=== PATIENT | female | born 1975 | race Caucasian/White ===

== ENCOUNTER 2017-01-25 16:40 | Observation (INO) | payer OTHER ==
[~2017-01-25] VITALS: Ht 167.6 cm; Wt 95.0 kg
[~2017-01-25 16:40] MED LIST: METH750T2 PO; NAPR-576 PO
[2017-01-25] MEDS ORDERED: SODIUM CHLORIDE 0.9% FLUSH 10 ML FLUSH IVF PRN (17:00)
[2017-01-25] MEDS ORDERED: ASPIRIN 81 MG CHEW TAB PO ONE (17:00)
[2017-01-25] MEDS ORDERED: MORPHINE SULFATE 4 MG/ML INJ IV PUSH ONE (17:00)
[2017-01-25] MEDS: NITROGLYCERIN 0.4 MG SL 25 TABS/BTL SL SCH ×3 (17:01→17:11)
[2017-01-25 17:02] VITALS: BP 131/72; PULSE 68; RESP 20; O2SAT 99
--- NOTE | 2017-01-25 17:03 | PD ---
HPI Chief Complaint: Chest Pain Time Seen by Provider: 16:45 Travel History International Travel<30 days: No Contact w/Intl Traveler<30days: No Traveled to known affect area: No History of Present Illness HPI This is a 41-year-old female who presents for evaluation of chest pain. Symptoms started just prior to arrival and the patient was eating at [employer]. Pain is substernal chest pressure that radiates into the right arm/ scapula. Symptoms have been constant. No obvious aggravating or relieving factors. Denies shortness of breath, nausea or vomiting, dizziness, diaphoresis , abdominal pain, recent illness, recent travel, recent surgery. No personal history of cardiac disease. She does note that her maternal grandmother had an NH in her 40s. No other complaints. PFSH Past Medical History ?: Not Past Surgical History Hysterectomy: Yes Social History Alcohol Use: No Tobacco Use: No Allergies-Medications (Allergen,Severity, Reaction): Coded Allergies: Phenergan (Verified Allergy, Severe, hallucination, 01/25/17) HALLUCINATIONS IF GIVEN IV Reported Meds & Prescriptions Reported Meds & Active Scripts Active No Active Prescriptions or Reported Medications Review of Systems Except as stated in HPI: all other systems reviewed are Neg Physical Exam Narrative GENERAL: This is a well-developed well-nourished female in no acute distress. SKIN: Warm and dry. HEAD: Atraumatic. Normocephalic. EYES: Pupils equal and round. No scleral icterus. No injection or drainage. ENT: No nasal bleeding or discharge. Mucous membranes pink and moist. NECK: Trachea midline. No JVD. CARDIOVASCULAR: Regular rate and rhythm. No murmur appreciated. RESPIRATORY: No accessory muscle use. Clear to auscultation. Breath sounds equal bilaterally. GASTROINTESTINAL: Abdomen soft, non-tender, nondistended. Hepatic and splenic margins not palpable. MUSCULOSKELETAL: No obvious deformities. No clubbing. No cyanosis. No edema. NEUROLOGICAL: Awake and alert. No obvious cranial nerve deficits. Motor grossly within normal limits. Normal speech. PSYCHIATRIC: Appropriate mood and affect; insight and judgment normal. Data Data Last Documented VS Vital Signs Date Time Temp Pulse Resp B/P Pulse Ox O2 Delivery O2 Flow Rate FiO2 01/25/17 17:16 20 01/25/17 17:02 100 Nasal Cannula 2 01/25/17 17:02 68 131/72 Orders Electrocardiogram (01/25/17 ) Basic Metabolic Panel (Bmp) (01/25/17 16:49) Ckmb (Isoenzyme) Profile (01/25/17 16:49) Complete Blood Count With Diff (01/25/17 16:49) Magnesium (Mg) (01/25/17 16:49) Prothrombin Time / Inr (Pt) (01/25/17 16:49) Act Partial Throm Time (Ptt) (01/25/17 16:49) Troponin I (01/25/17 16:49) Chest, Single Ap (01/25/17 16:49) Ecg Monitoring (01/25/17 16:49) Bilateral Bp Monitoring (01/25/17 16:49) Iv Access Insert/Monitor (01/25/17 16:49) Oximetry (01/25/17 16:49) Oxygen Administration (01/25/17 16:49) Aspirin Chew (Aspirin Chew) (01/25/17 17:00) Sodium Chloride 0.9% Flush (Ns Flush) (01/25/17 17:00) Nitroglycerin Sl (Nitrostat Sl) (01/25/17 17:00) Morphine Inj (Morphine Inj) (01/25/17 17:00) Potassium Chloride (Kcl) (01/25/17 18:15) Labs Laboratory Tests Test 01/25/17 17:00 White Blood Count 11.5 TH/MM3 Red Blood Count 4.79 MIL/MM3 Hemoglobin 14.4 GM/DL Hematocrit 43.1 % Mean Corpuscular Volume 90.0 FL Mean Corpuscular Hemoglobin 30.1 PG Mean Corpuscular Hemoglobin 33.4 % Concent Red Cell Distribution Width 13.2 % Platelet Count 316 TH/MM3 Mean Platelet Volume 8.6 FL Neutrophils (%) (Auto) 59.4 % Lymphocytes (%) (Auto) 30.8 % Monocytes (%) (Auto) 7.4 % Eosinophils (%) (Auto) 2.0 % Basophils (%) (Auto) 0.4 % Neutrophils # (Auto) 6.9 TH/MM3 Lymphocytes # (Auto) 3.5 TH/MM3 Monocytes # (Auto) 0.8 TH/MM3 Eosinophils # (Auto) 0.2 TH/MM3 Basophils # (Auto) 0.0 TH/MM3 CBC Comment DIFF FINAL Differential Comment Prothrombin Time 10.8 SEC Prothromb Time International 1.0 RATIO Ratio Activated Partial 25.6 SEC Thromboplast Time Sodium Level 140 MEQ/L Potassium Level 3.4 MEQ/L Chloride Level 105 MEQ/L Carbon Dioxide Level 28.9 MEQ/L Anion Gap 6 MEQ/L Blood Urea Nitrogen 12 MG/DL Creatinine 1.06 MG/DL Estimat Glomerular Filtration 57 ML/MIN Rate Random Glucose 70 MG/DL Calcium Level 8.8 MG/DL Magnesium Level 2.5 MG/DL Total Creatine Kinase 66 U/L Troponin I LESS THAN 0.02 NG/ML MDM Medical Decision Making Medical Screen Exam Complete: Yes Emergency Medical Condition: Yes Medical Record Reviewed: Yes Interpretation(s) EKG sinus rhythm CBC WBC 11.5 BMP potassium 3.4, creatinine 1.06 Differential Diagnosis ACS, cholecystitis, aortic dissection, pneumothorax, hemothorax, pericarditis, myocarditis, costochondritis, muscle spasm Narrative Course 41-year-old female who developed chest pain just prior to arrival. The pain is a substernal chest pressure that radiates into the right arm/scapula. No other associated symptoms. A 12-lead EKG was immediately obtained. The patient was placed on ECG monitoring pulse oximetry. She was given a full dose aspirin, sublingual nitroglycerin, morphine. Basic lab work has been sent. The patient's laboratory imaging studies have been reviewed. Potassium slightly low at 3.4, she was given 20 mEq oral potassium chloride. Initial set of cardiac enzymes are negative. The patient's symptoms did improve after the administration of nitroglycerin from an area that of 10 pain to a 2 out of 10 pain and therefore the morphine was not administered. At this point in time the plan will be to admit the patient to the chest pain center for serial cardiac enzymes and rule out purposes. Discussed with the patient is agreeable. Procedures EKG Prior to Arrival: Yes Diagnosis Primary Impression: Chest pain Qualified Code: R07.9 - Chest pain, unspecified type Admitting Information Admitting Physician Requests: Observation Scripts No Active Prescriptions or Reported Meds Terrence Melgoza Jan 25, 2017 17:03
--- NOTE | 2017-01-25 17:18 | RADRPT ---
EXAM DATE/TIME: 01/25/2017 16:53 [facility] COMPARISON: No previous studies available for comparison. INDICATIONS : Chest pain. MEDICAL HISTORY : None. SURGICAL HISTORY : Hysterectomy. Right rotator cuff repair. Rhinoplasty. ENCOUNTER: Initial ACUITY: 1 day PAIN SCORE: 9/10 LOCATION: Bilateral chest FINDINGS: A single view of the chest demonstrates the lungs to be symmetrically aerated without evidence of mas s, infiltrate or effusion. The cardiomediastinal contours are unremarkable. Osseous structures are intact. CONCLUSION: No acute disease. Gerardo Chavez MD on January 25, 2017 at 17:16 Board Certified Radiologist. This report was verified electronically.
[2017-01-25 17:28] LABS: AUTOMATED NEUTROPHIL # 6.9 TH/MM3 (1.8-7.7); BASOPHIL % 0.4 % (0.0-2.0); EOSINOPHIL # 0.2 TH/MM3 (0-0.4); HEMATOCRIT 43.1 % (35.0-46.0); HEMO FLAGS DIFF FINAL; LYMPH % 30.8 % (9.0-44.0); LYMPHOCYTE # 3.5 TH/MM3 (1.0-4.8); MEAN CORPUSCULAR HEMOGLOBIN 30.1 PG (27.0-34.0); MEAN CORPUSCULAR HGB CONC 33.4 % (32.0-36.0); MONO % 7.4 % (0.0-8.0); NEUT % 59.4 % (16.0-70.0); PLATELET COUNT 316 TH/MM3 (150-450); RED BLOOD COUNT 4.79 MIL/MM3 (4.00-5.30); RED CELL DISTRIBUTION WIDTH 13.2 % (11.6-17.2); WHITE BLOOD COUNT 11.5 TH/MM3 (4.0-11.0)
[2017-01-25 17:46] LABS: APTT (PATIENT) 25.6 SEC (24.3-30.1); PROTHROMBIN TIME - PATIENT 10.8 SEC (9.8-11.6)
[2017-01-25 17:51] LABS: ANION GAP 6 MEQ/L (5-15); BICARBONATE 28.9 MEQ/L (21.0-32.0); BLOOD UREA NITROGEN 12 MG/DL (7-18); CHLORIDE 105 MEQ/L (98-107); GLOMERULAR FILTRATION RATE 57 ML/MIN (>89); MAGNESIUM 2.5 MG/DL (1.5-2.5); POTASSIUM 3.4 MEQ/L (3.5-5.1); SODIUM (NA) 140 MEQ/L (136-145)
[2017-01-25 17:58] LABS: CREATINE KINASE 66 U/L (26-192)
[2017-01-25] MEDS ORDERED: POTASSIUM CHLORIDE 20 MEQ CONTROLLED RELEASE TAB PO ONE (18:15)
[2017-01-25] MEDS ORDERED: ONDANSETRON HCL 4 MG/2 ML VIAL IV PRN (18:15)
[2017-01-25] MEDS ORDERED: SODIUM CHLORIDE 0.9% FLUSH 10 ML FLUSH IV FLUSH PRN (18:15)
[2017-01-25] MEDS ORDERED: ACETAMINOPHEN 500 MG CPLT PO PRN (18:15)
[2017-01-25 19:30] VITALS: O2SAT 97
[2017-01-25 20:09] VITALS: BP_SYST 108; BP_SYST 117; BP_DIAS 71; BP_DIAS 78; PULSE 52; PULSE 67; RESP 16; O2SAT 100; O2SAT 98
[2017-01-25 20:59] VITALS: BP 118/68; PULSE 55; RESP 18; TEMP 98.4; O2SAT 100
[2017-01-25 21:32] LABS: CREATINE KINASE 56 U/L (26-192)
--- NOTE | 2017-01-25 21:33 | EKG ---
Date Performed: 01/25/2017 Time Performed: 16:58:27 PTAGE: 41 years EKG: Sinus rhythm NORMAL ECG NO PREVIOUS TRACING DOCTOR: Seferino Ward Interpretating Date/Time 01/25/2017 21:31:39
[2017-01-25 21:39] VITALS: PULSE 54
[2017-01-25] MEDS: SODIUM CHLORIDE 0.9% FLUSH 10 ML FLUSH IV FLUSH SCH (21:45)
[2017-01-25 23:37] VITALS: BP 97/57; PULSE 47; RESP 18; TEMP 98.1; O2SAT 97
[2017-01-25] MEDS ORDERED: ACETAMINOPHEN/HYDROcodone 325 MG/7.5 MG TAB PO SCH (23:45)
[2017-01-25] MEDS ORDERED: ACETAMINOPHEN/HYDROcodone 325 MG/7.5 MG TAB PO PRN (23:45)
[2017-01-25 23:59] LABS: CREATINE KINASE 55 U/L (26-192)
[2017-01-26 00:25] VITALS: PULSE 51
[2017-01-26 04:11] VITALS: BP 112/58; PULSE 42; RESP 18; TEMP 98.4; O2SAT 99
[2017-01-26 04:24] VITALS: PULSE 42
--- NOTE | 2017-01-26 07:02 | EKG ---
Date Performed: 01/25/2017 Time Performed: 20:17:42 PTAGE: 41 years EKG: SINUS BRADYCARDIA BORDERLINE ECG PREVIOUS TRACING : 01/25/2017 16.58 No significant change from previous tracing noted. DOCTOR: Seferino Ward Interpretating Date/Time 01/26/2017 07:01:03
[2017-01-26 07:51] VITALS: BP 115/63; PULSE 54; RESP 15; TEMP 97.5; O2SAT 100
[2017-01-26 08:00] VITALS: PULSE 53
[2017-01-26 08:08] VITALS: O2SAT 99
[2017-01-26] MEDS: SODIUM CHLORIDE 0.9% FLUSH 10 ML FLUSH IV FLUSH SCH (08:58)
[2017-01-26] MEDS ORDERED: SODIUM CHLOR 0.9% 1000 ML INJ 1,000 ML IV SCH (09:00)
--- NOTE | 2017-01-26 10:02 | RADRPT ---
EXAM DATE/TIME: 01/26/2017 09:26 [facility] COMPARISON: No previous studies available for comparison. INDICATIONS : Right upper quandrant pain. MEDICAL HISTORY : Hypercholesterolemia. Syncope. SURGICAL HISTORY : Hysterectomy. Right rotator cuff repair. Rhinoplasty. ENCOUNTER: Initial ACUITY: 1 day PAIN SCORE: 4/10 LOCATION: Right upper quadrant MEASUREMENTS: LIVER: 17.6 cm length COMMON DUCT: 4 mm RIGHT KIDNEY: 8.8 x 4.0 x 5.2 cm FINDINGS: LIVER: Normal echotexture without focal lesion or ductal dilatation. COMMON DUCT: No intraluminal mass or stone visualized. GALLBLADDER: Contains no stones, demonstrates no wall thickening or pericholecystic fluid. PANCREAS: The visualized portions are within normal limits. RIGHT KIDNEY: No evidence of hydronephrosis, stone, or mass. CONCLUSION: Normal examination. Jimi Morris MD on January 26, 2017 at 9:59 Board Certified Radiologist. This report was verified electronically.
[2017-01-26 12:03] LABS: ALKALINE PHOSPHATASE 79 U/L (45-117); TOTAL BILIRUBIN ADULT 0.2 MG/DL (0.2-1.0)
[2017-01-26 12:06] LABS: ALT (GPT) 22 U/L (10-53); INDIRECT BILIRUBIN 0.1 MG/DL (0.0-0.8)
[2017-01-26 12:09] LABS: AST (GOT) 19 U/L (15-37)
--- NOTE | 2017-01-26 12:35 | HHI.DCPOC ---
Discharge Care Plan Diagnosis: (1) Chest pain (2) Hyperlipidemia Goals to Promote Your Health * To prevent worsening of your condition and complications * To maintain your health at the optimal level Directions to Meet Your Goals Take your medications as prescribed Follow your dietary instruction Follow activity as directed Keep your appointments as scheduled Take your immunizations and boosters as scheduled If your symptoms worsen call your PCP, if no PCP go to Urgent Care Center or Emergency Room Smoking is Dangerous to Your Health. Avoid second hand smoke Call the 24-hour hour crisis hotline for domestic abuse at [facility] [place] Jan 26, 2017 12:35
[2017-01-26] MEDS ORDERED: PRAV10TA PO (12:39)
--- NOTE | 2017-01-26 12:42 | HHI.HP ---
HPI Primary Care Physician Kole Solitario DO Chief Complaint Chest pain History of Present Illness This is a 41-year-old female that presents to ED via private vehicle with a complaint of sharp discomfort in the center of her chest radiating to the right shoulder. It began a little bit after having a salad and a few bites of a blooming onion at [employer]. Her last about 45 minutes. She is mildly short of breath. No nausea or diaphoresis. Has not had this before. She believes she had a stress test about 5 years ago including a 2-D echo and also 5 years ago that were normal. She states that that was done secondary to having a familial history of cardiomyopathy and a cousin passing way to young age of a cardiomyopathy. She states her results were all normal. Has history of hyperlipidemia but stopped taking it about a month ago stating she did not want to take it. Denies recent illness. Denies fevers or chills. Review of Systems General: Patient denies fevers, chills recent, and recent travel HEENT: Patient denies headache, sore throat, difficulty swallowing. Cardiovascular: Has the chest discomfort as mentioned above. Denies sensation of heart beating rapidly or irregularly. No syncope. Respiratory: Mildly short of breath. Denies inspirational chest discomfort. Denies coughing wheezing or hemoptysis. GI: Patient denies nausea, vomiting, diarrhea, abdominal pain, bloody stools. Musculoskeletal: Patient denies joint pain or edema. Denies calf pain or edema. Neurovascular: Patient denies numbness, tingling, weakness in extremities. Denies headache. Endocrine: Denies polyuria and polydipsia. Hematologic: Denies easy bruising. Skin: Denies rash or itching. Past Family Social History Allergies: Coded Allergies: Phenergan (Verified Allergy, Severe, hallucination, 01/25/17) HALLUCINATIONS IF GIVEN IV Past Medical History Hyperlipidemia. Denies hypertension, diabetes, and CAD. Past Surgical History Hysterectomy. Reported Medications Reported Meds & Active Scripts Active No Active Prescriptions or Reported Medications Active Ordered Medications Current Medications Medications (Trade) Dose Ordered Sig/Drea Route Start Time Stop Time Status Last Admin (NS Flush) 2 ml UNSCH PRN IVF 01/25/17 17:00 (NS Flush) 2 ml UNSCH PRN IV FLUSH 01/25/17 18:15 (NS Flush) 2 ml BID IV FLUSH 01/25/17 21:00 01/26/17 08:58 (Tylenol) 500 mg Q4H PRN PO 01/25/17 18:15 01/25/17 21:46 (Zofran Inj) 4 mg Q6H PRN IV 01/25/17 18:15 Acetaminophen/ Hydrocodone Bitart 1 tab 1 tab Q6H PRN PO 01/25/17 23:45 (NS 1000 ml Inj) 1,000 ml @ 125 mls/hr Q8H IV 01/26/17 09:00 01/26/17 16:59 01/26/17 08:58 Family History Family history of cardiomyopathy. No known coronary artery disease. Social History Patient does not smoke, drink, or use illicit drugs. Physical Exam Vital Signs Vital Signs Date Time Temp Pulse Resp B/P Pulse Ox O2 Delivery O2 Flow Rate FiO2 01/26/17 08:08 99 Nasal Cannula 2.00 01/26/17 08:00 53 01/26/17 07:51 97.5 54 15 115/63 100 01/26/17 04:24 42 01/26/17 04:11 98.4 42 18 112/58 99 01/26/17 00:25 51 01/25/17 23:37 98.1 47 18 97/57 97 01/25/17 21:39 54 01/25/17 20:59 98.4 55 18 118/68 100 01/25/17 20:09 52 16 108/71 100 Room Air 01/25/17 19:30 97 01/25/17 17:16 20 01/25/17 17:02 100 Nasal Cannula 2 01/25/17 17:02 68 20 131/72 99 Room Air Physical Exam GENERAL: This is a well-nourished, well-developed patient, in no apparent distress. Patient speaks in clear complete sentences. Patient is pleasant. HEENT: Head is atraumatic and normocephalic. Neck is supple without lymphadenopathy and trachea is midline. No JVD or carotid bruits. CARDIOVASCULAR: Regular rate and rhythm without murmurs, gallops, or rubs. RESPIRATORY: Clear to auscultation. Breath sounds equal bilaterally. No wheezes , rales, or rhonchi. Chest wall is nontender. No use of accessory muscles. GASTROINTESTINAL: There is right upper quadrant abdominal discomfort but no true Manuel sign. Abdomen is nondistended. Abdomen soft. No obvious pulsatile mass or bruit. No CVA tenderness. Strong femoral pulses bilaterally. Normal bowel sounds in all quadrants. MUSCULOSKELETAL: Patient is moving upper and lower extremities freely. No calf tenderness or edema, no Homans sign. Strong pulses in upper and lower extremities. NEUROLOGICAL: Patient is alert and oriented. Cranial nerves 2-12 are grossly intact. No focal deficits and speech is clear. SKIN: No rash and turgor is normal. Laboratory Laboratory Tests Test 01/25/17 01/25/17 01/25/17 17:00 20:11 23:05 White Blood Count 11.5 Red Blood Count 4.79 Hemoglobin 14.4 Hematocrit 43.1 Mean Corpuscular Volume 90.0 Mean Corpuscular Hemoglobin 30.1 Mean Corpuscular Hemoglobin 33.4 Concent Red Cell Distribution Width 13.2 Platelet Count 316 Mean Platelet Volume 8.6 Neutrophils (%) (Auto) 59.4 Lymphocytes (%) (Auto) 30.8 Monocytes (%) (Auto) 7.4 Eosinophils (%) (Auto) 2.0 Basophils (%) (Auto) 0.4 Neutrophils # (Auto) 6.9 Lymphocytes # (Auto) 3.5 Monocytes # (Auto) 0.8 Eosinophils # (Auto) 0.2 Basophils # (Auto) 0.0 CBC Comment DIFF FINAL Differential Comment Prothrombin Time 10.8 Prothromb Time International 1.0 Ratio Activated Partial 25.6 Thromboplast Time Sodium Level 140 Potassium Level 3.4 Chloride Level 105 Carbon Dioxide Level 28.9 Anion Gap 6 Blood Urea Nitrogen 12 Creatinine 1.06 Estimat Glomerular Filtration 57 Rate Random Glucose 70 Calcium Level 8.8 Magnesium Level 2.5 Total Creatine Kinase 66 56 55 Troponin I LESS THAN 0.02 LESS THAN 0.02 LESS THAN 0.02 Total Bilirubin 0.2 Direct Bilirubin LESS THAN 0.1 Indirect Bilirubin 0.1 Aspartate Amino Transf 19 (AST/SGOT) Alanine Aminotransferase 22 (ALT/SGPT) Alkaline Phosphatase 79 Total Protein 6.2 Albumin 3.4 Lipase 166 Result Diagram: 01/25/17 1700 01/25/17 1700 Imaging Last 48 hours Impressions Gall Bladder Ultrasound 01/26/17 0000 Signed Impressions: Service Date/Time: Thursday, January 26, 2017 09:26 - CONCLUSION: Normal examination. Jimi Morris MD Chest X-Ray 01/25/17 2039 Signed Impressions: Service Date/Time: Wednesday, January 25, 2017 16:53 - CONCLUSION: No acute disease. Gerardo Chavez MD Course EKGs have sinus rhythm without significant ST segment depressions or elevations. Assessment and Plan Assessment and Plan * Chest pain: Patient had serial cardiac enzymes and EKGs for ruling out purposes. She was seen by Dr. Donis cardiology in the chest pain center and will undergo a [place] protocol ETT. If stress test were to be nonischemic she'll be discharged home with instructions to follow-up with PCP. Ultrasound of gallbladder is normal. * Hyperlipidemia: Patient has been instructed to resume taking her medication and follow back with her primary care physician. Patient is stable at this time. She is agreeable to this plan. [facility] [place] Jan 26, 2017 12:42
--- NOTE | 2017-01-27 12:21 | TR ---
Date Performed: 01/26/2017 Time Performed: 11:15:26 DOCTOR: Najma Donis DRUG LIST: CLINICAL HISTORY: REASON FOR TEST: REASON FOR ENDING: OBSERVATION: CONCLUSION: NANCY PROTOCOL ETT. NO CP. TEST STOPPED AFTER REACHING GOAL HR SECONDARY TO SOB AND LEG FATIGUE.Maximum SV=835 % Max HR Achieved=86.0% Maximum OG=360/68 Total Exercise Time=10:19 COMMENTS:
--- NOTE | 2017-01-27 12:24 | EKG ---
Date Performed: 01/25/2017 Time Performed: 23:05:48 PTAGE: 41 years EKG: SINUS BRADYCARDIA WITH FIRST DEGREE AV BLOCK ABNORMAL ECG Since PREVIOUS TRACING , no significant change noted PREVIOUS TRACIN01/25/2017 20.17 DOCTOR: Najma Donis Interpretating Date/Time 01/27/2017 12:23:45
== END 2017-01-26 13:34 | disposition home or self-care (01) ==
LOC: NEPE 16:40 → NEDA 18:06 → NEPHCDU 20:31
DX: R07.89 Other chest pain (principal); R06.02 Shortness of breath; R07.2 Precordial pain; I44.0 Atrioventricular block, first degree; R00.1 Bradycardia, unspecified; R94.31 Abnormal electrocardiogram [ECG] [EKG]; M79.601 Pain in right arm; R10.11 Right upper quadrant pain; E78.5 Hyperlipidemia, unspecified; E78.00 Pure hypercholesterolemia, unspecified
CPT/HCPCS: 71010; 76705; 80048; 80076; 82550; 83690; 83735; 84484; 85025; 85610; 85730; 93005; 93017; 99285; G0378; J7030